=== PATIENT | female | born 1965 | race Caucasian/White ===

== ENCOUNTER 2018-12-09 14:33 | Emergency (ER) | payer SELFPAY ==
--- NOTE | 2018-12-09 15:25 | ER Document Report ---
ED Medical Screen (RME) - General Chief Complaint: Flank Pain Stated Complaint: ABDOMINAL PAIN Time Seen by Provider: 12/09/18 15:17 Mode of Arrival: Ambulatory Information source: Patient Notes: This is a 53-year-old female with a long history of chronic back pain, morbid obesity who presents to the emergency room with worsening back pain and difficulty ambulating. She states hurts all over her back she gets radiation down both of her legs. She denies any fecal or urinary incontinence or retention. She denies any saddle anesthesia. She denies any fever. TRAVEL OUTSIDE OF THE [place] IN LAST 30 DAYS: No - Related Data Allergies/Adverse Reactions: No Known Allergies Allergy (Unverified 12/09/18 15:16) Physical Exam - Vital signs Vitals: Temp Pulse Resp BP Pulse Ox 98.1 F 90 22 H 135/91 H 100 12/09/18 14:41 12/09/18 14:41 12/09/18 14:41 12/09/18 14:41 12/09/18 14:41 Course - Vital Signs Vital signs: Temp Pulse Resp BP Pulse Ox 98.1 F 90 22 H 135/91 H 100 12/09/18 14:41 12/09/18 14:41 12/09/18 14:41 12/09/18 14:41 12/09/18 14:41
[2018-12-09] MEDS ORDERED: HYDROMORPHONE HCL INJ/PF 2 MG/ML AMPULE IV ONE (15:26)
[2018-12-09] MEDS ORDERED: ONDANSETRON HCL INJ/PF 4 MG/2 ML SDV IV ONE (15:26)
[2018-12-09] MEDS ORDERED: KETOROLAC TROMETHAMINE INJ/PF 30 MG/1 ML SDV IV ONE (15:26)
[2018-12-09 16:55] LABS: APPEARANCE,URINE CLOUDY; BILIRUBIN,URINE NEGATIVE (NEGATIVE); GLUCOSE, URINE 50 mg/dL (NEGATIVE); KETONES,URINE NEGATIVE (NEGATIVE); LEUKOCYTE ESTERASE,URINE TRACE (NEGATIVE); NITRITE,URINE NEGATIVE (NEGATIVE); PROTEIN,URINE NEGATIVE (NEGATIVE); URINE SPECIFIC GRAVITY 1.019; UROBILINOGEN,URINE NEGATIVE mg/dL (<2.0)
[2018-12-09 17:01] LABS: COLOR,URINE YELLOW
--- NOTE | 2018-12-09 18:45 | ER Document Report ---
ED General - General Chief Complaint: Flank Pain Stated Complaint: ABDOMINAL PAIN Time Seen by Provider: 12/09/18 15:17 Mode of Arrival: Ambulatory Notes: 53-year-old female patient emergency department chief complaint of left flank pain and back pain. Patient states that she has chronic low back pain and neck pain. Has been getting worse over the last several days. States that she had imaging done almost 10 years ago and told that she has significant degenerative disc disease. Patient denies any so bladder retention but does state that she had an episode of diarrhea and improved herself last week. Unknown if that was voluntary or involuntary. Patient is requesting something for the pain but also states that she is worried something else is going on and wants pictures taken. Denies any fever, chills, sweats. Does have some numbness in both of her legs that comes and goes. Also has some pain in her neck with numbness in her arms which comes and goes. TRAVEL OUTSIDE OF THE [place] IN LAST 30 DAYS: No - HPI Quality of pain: Achy Severity: Moderate Pain Level: 3 - Related Data Allergies/Adverse Reactions: No Known Allergies Allergy (Unverified 12/09/18 15:16) Past Medical History - General Information source: Patient - Social History Smoking Status: Never Smoker Frequency of alcohol use: None Drug Abuse: None Lives with: Spouse/Significant other Family History: Reviewed & Not Pertinent Patient has suicidal ideation: No Patient has homicidal ideation: No - Past Medical History Cardiac Medical History: Reports: Hx Hypertension Renal/ Medical History: Denies: Hx Peritoneal Dialysis Psychiatric Medical History: Reports: Hx Depression Past Surgical History: Reports: Hx Hysterectomy Review of Systems - Review of Systems Notes: Constitutional: denies: Chills, Diaphoresis, Fever, Malaise, Weakness EENT: denies: Eye discharge, Blurred vision, Tearing, Double vision, Nose congestion, Nose discharge, Throat swelling, Mouth pain Cardiovascular: denies: Palpitations, Heart racing, Orthopnea, Dyspnea, Chest pain Respiratory: denies: Cough, Hurts to breathe, Wheezing, Shortness of breath Gastrointestinal: denies: Abdominal pain, Diarrhea, Nausea, Vomiting, Black stools, bright red blood in stool Genitourinary: denies: Burning, Dysuria, Discharge, Frequency, Flank pain, Hematuria Musculoskeletal: denies: Joint pain, Joint swelling, Muscle pain, Muscle stiffness, + neck pain and back pain Hematologic/Lymphatic: denies: Anemia, Easy bleeding, Easy bruising, Blood clots Neurological/Psychological: denies: Confusion, Dementia, Depression, Loss of consciousness. Mild numbness in her legs. Skin: No lesions, no masses, no skin breakdown, no abscesses Physical Exam - Vital signs Vitals: Temp Pulse Resp BP Pulse Ox 98.1 F 90 22 H 135/91 H 100 12/09/18 14:41 12/09/18 14:41 12/09/18 14:41 12/09/18 14:41 12/09/18 14:41 Interpretation: Normal - General General appearance: Appears well, Alert - HEENT Head: Normocephalic, Atraumatic Eyes: Normal Pupils: PERRL - Respiratory Respiratory status: No respiratory distress Chest status: Nontender Breath sounds: Normal Chest palpation: Normal - Cardiovascular Rhythm: Regular Heart sounds: Normal auscultation Murmur: No - Abdominal Inspection: Normal Distension: No distension Bowel sounds: Normal Tenderness: Nontender Organomegaly: No organomegaly - Back Back: Normal, Tender - Moderate tenderness palpation in the left SI joint area negative straight leg. - Extremities General upper extremity: Normal inspection, Nontender, Normal color, Normal ROM, Normal temperature General lower extremity: Normal inspection, Nontender, Normal color, Normal ROM, Normal temperature, Normal weight bearing. No: Kaley's sign - Neurological Neuro grossly intact: Yes Cognition: Normal Orientation: AAOx4 [place] Coma Scale Eye Opening: Spontaneous [place] Coma Scale Verbal: Oriented [place] Coma Scale Motor: Obeys Commands [place] Coma Scale Total: 15 Speech: Normal Motor strength normal: LUE, RUE, LLE, RLE Sensory: Normal - Psychological Associated symptoms: Normal affect, Normal mood - Skin Skin Temperature: Warm Skin Moisture: Dry Skin Color: Normal Course - Re-evaluation Re-evalutation: 12/09/18 20:19 Laboratory 12/09/18 12/09/18 12/09/18 16:25 18:30 18:30 WBC 9.7 RBC 4.79 Hgb 13.6 Hct 40.5 MCV 85 MCH 28.4 MCHC 33.6 RDW 14.3 H Plt Count 408 Seg Neutrophils % 54.1 Lymphocytes % 33.3 Monocytes % 5.7 Eosinophils % 6.0 Basophils % 0.9 Absolute Neutrophils 5.2 Absolute Lymphocytes 3.2 Absolute Monocytes 0.6 Absolute Eosinophils 0.6 Absolute Basophils 0.1 Sodium 136.0 L Potassium 4.6 Chloride 97 L Carbon Dioxide 28 Anion Gap 11 BUN 29 H Creatinine 0.71 Est GFR ( Amer) > 60 Est GFR (Non-Af Amer) > 60 Glucose 169 H Calcium 10.2 Total Bilirubin 0.4 Direct Bilirubin 0.2 Neonat Total Bilirubin Not Reportable Neonat Direct Bilirubin Not Reportable Neonat Indirect Bili Not Reportable AST 33 ALT 42 Alkaline Phosphatase 182 H Total Protein 8.0 Albumin 5.1 H Urine Color YELLOW Urine Appearance CLOUDY Urine pH 6.0 Ur Specific Sheldon 1.019 Urine Protein NEGATIVE Urine Glucose (UA) 50 H Urine Ketones NEGATIVE Urine Blood NEGATIVE Urine Nitrite NEGATIVE Urine Bilirubin NEGATIVE Urine Urobilinogen NEGATIVE Ur Leukocyte Esterase TRACE H Urine WBC (Auto) 2 Urine RBC (Auto) 1 Squamous Epi Cells Auto 2 Urine Mucus (Auto) RARE Urine Ascorbic Acid NEGATIVE Abdomen/Pelvis CT 12/09/18 19:16 IMPRESSION: Negative for urinary tract calculus or hydronephrosis. Sigmoid diverticulosis without CT evidence for diverticulitis. TECHNICAL DOCUMENTATION: Quality ID # 436: Final reports with documentation of one or more dose reduction techniques (e.g., Automated exposure control, adjustment of the mA and/or kV according to patient size, use of iterative reconstruction technique) copyright 2011 [employer]- All Rights Reserved Cervical Spine X-Ray 12/09/18 19:16 IMPRESSION: Moderate degenerative changes. No fracture. 12/09/18 20:19 At this time I find no significant pathology seen on CT scan of the abdomen and pelvis. No kidney stone. No fractures of the lumbar spine. X-rays of the cervical spine did not reveal any significant pathology other than some degenerative changes. Patient will need to see outpatient pain management doctor. We will give her a refill for all/name for pain management and DC her at this time. - Vital Signs Vital signs: Temp Pulse Resp BP Pulse Ox 98.1 F 90 22 H 135/91 H 100 12/09/18 14:41 12/09/18 14:41 12/09/18 14:41 12/09/18 14:41 12/09/18 14:41 - Laboratory Result Diagrams: 12/09/18 18:30 12/09/18 18:30 Laboratory results interpreted by me: 12/09/18 12/09/18 12/09/18 16:25 18:30 18:30 RDW 14.3 H Sodium 136.0 L Chloride 97 L BUN 29 H Glucose 169 H Alkaline Phosphatase 182 H Albumin 5.1 H Urine Glucose (UA) 50 H Ur Leukocyte Esterase TRACE H Discharge - Discharge Clinical Impression: Cervical arthritis Chronic low back pain Qualifiers: Back pain laterality: left Sciatica presence: with sciatica Sciatica laterality: sciatica of left side Qualified Code(s): M54.42 - Lumbago with sciatica, left side; G89.29 - Other chronic pain Condition: Good Disposition: HOME, SELF-CARE Instructions: Chronic Back Pain ([facility]), Low Back Pain ([facility]) Additional Instructions: Please follow-up with pain management for further evaluation as this will more likely need repeat medications. Do not mix alcohol with narcotics. Return immediately if you develop high fevers, worsening numbness to the lower extremities, loss of bowel or bladder function or other concerns. Prescriptions: Famotidine [Pepcid 20 mg Tablet] 20 mg PO BID 20 Days #40 tablet Meloxicam [Mobic] 15 mg PO DAILY 20 Days #20 tablet Forms: Return to Work Referrals: ELBA ZAVALA MD [ACTIVE STAFF] - Follow up as needed [facility] [Provider Group] - Follow up as needed
[2018-12-09 19:05] LABS: ABSOLUTE BASOPHILS # (AUTO) 0.1 10^3/uL (0.0-0.2); ABSOLUTE EOSINOPHILS # (AUTO) 0.6 10^3/uL (0.0-0.6); ABSOLUTE LYMPHOCYTES (AUTO) 3.2 10^3/uL (0.5-4.7); ABSOLUTE MONOCYTES (AUTO) 0.6 10^3/uL (0.1-1.4); ABSOLUTE NEUT (AUTO) 5.2 10^3/uL (1.7-8.2); BASOPHILS % (AUTO) 0.9 % (0-2); HEMATOCRIT 40.5 % (36.0-47.0); HEMOGLOBIN 13.6 g/dL (12.0-15.5); LYMPHOCYTES % (AUTO) 33.3 % (13-45); MEAN CORPUSCULAR HEMOGLOBIN 28.4 pg (27.0-33.4); MEAN CORPUSCULAR HGB CONC 33.6 g/dL (32.0-36.0); MEAN CORPUSCULAR VOLUME 85 fl (80-97); MONOCYTES % (AUTO) 5.7 % (3-13); PLATELET COUNT 408 10^3/uL (150-450); RED BLOOD COUNT 4.79 10^6/uL (3.72-5.28); RED CELL DISTRIBUTION WIDTH 14.3 % (11.5-14.0); SEGMENTED NEUTROPHILS % (AUTO) 54.1 % (42-78); TOTAL CELLS COUNTED % (AUTO) 100 %; WHITE BLOOD COUNT 9.7 10^3/uL (4.0-10.5)
[2018-12-09] MEDS ORDERED: OXYCODONE-ACETAMINOPHEN 5-325 MG TABLET PO ONE (19:17)
[2018-12-09 19:25] LABS: ALANINE AMINOTRANSFERASE 42 U/L (9-52); ALBUMIN 5.1 g/dL (3.5-5.0); ALKALINE PHOSPHATASE 182 U/L (38-126); ANION GAP 11 (5-19); ASPARTATE AMINO TRANSFERASE 33 U/L (14-36); BILIRUBIN,DIRECT 0.2 mg/dL (0.0-0.4); BILIRUBIN,TOTAL 0.4 mg/dL (0.2-1.3); BLOOD UREA NITROGEN 29 mg/dL (7-20); CALCIUM 10.2 mg/dL (8.4-10.2); CARBON DIOXIDE 28 mmol/L (22-30); CHLORIDE 97 mmol/L (98-107); GLUCOSE 169 mg/dL (75-110); POTASSIUM 4.6 mmol/L (3.6-5.0)
--- NOTE | 2018-12-09 20:04 | RADIOLOGY REPORT (SQ) ---
EXAM DESCRIPTION: XR CERVICAL SPINE 4-5 VIEWS COMPLETED DATE/TME: 12/09/2018 19:16 CLINICAL HISTORY: 53 years, Female, neck pain and bilateral arm numbness Findings: Vertebral body heights are intact. Alignment is intact. No subluxation. Moderate degenerative changes at C5-C6 and C6-C7. No significant prevertebral soft tissue swelling. Odontoid process is intact. IMPRESSION: Moderate degenerative changes. No fracture.
--- NOTE | 2018-12-09 20:08 | RADIOLOGY REPORT (SQ) ---
EXAM DESCRIPTION: CT ABDOMEN PELVIS WITHOUT IV CONTRAST COMPLETED DATE/TME: 12/09/2018 19:16 CLINICAL HISTORY: 53 years, Female, left flank pain, severe back pain, COMPARISON: None. TECHNIQUE: [id number] Images stored on PACS. All CT scanners at this facility use dose modulation, iterative reconstruction, and/or weight based dosing when appropriate to reduce radiation dose to as low as reasonably achievable (ALARA). [facility]: Dose Right [facility]: CareDose [facility]: Dose Right [facility]: Teradose 4D [facility]: [employer] LIMITATIONS: None. FINDINGS: The visualized lung bases are unremarkable. Osseous structures are grossly intact. The liver, spleen, adrenal glands, pancreas are unremarkable. Status post cholecystectomy. Lobulated appearance to the kidneys bilaterally likely reflecting renal cortical scar formation. Negative for urinary tract calculus or hydronephrosis. Urinary bladder not distended, limiting its evaluation. Sigmoid diverticulosis. No CT evidence for diverticulitis. Normal appendix. Several nonspecific nonenlarged mesenteric lymph nodes in the right lower quadrant. IMPRESSION: Negative for urinary tract calculus or hydronephrosis. Sigmoid diverticulosis without CT evidence for diverticulitis. TECHNICAL DOCUMENTATION: Quality ID # 436: Final reports with documentation of one or more dose reduction techniques (e.g., Automated exposure control, adjustment of the mA and/or kV according to patient size, use of iterative reconstruction technique) copyright 2010 [employer]- All Rights Reserved
[2018-12-09] MEDS ORDERED: HYDROCODONE/ACETAMINOPHEN 5-325 MG (6 TAB/ER DISP) PO PRN (20:29)
[2018-12-09 22:01] VITALS: BP 141/81
== END 2018-12-09 21:00 | disposition home or self-care (01) ==
LOC: EDBD → ER 14:33
DX: M47.9 Spondylosis, unspecified (principal); M54.2 Cervicalgia; G89.29 Other chronic pain; M54.42 Lumbago with sciatica, left side; R20.0 Anesthesia of skin; I10 Essential (primary) hypertension; K57.30 Diverticulosis of large intestine without perforation or abscess without bleeding
CPT/HCPCS: 99284; 96374; 96375; 36415; 85025; 80053; 81001; 72050; 74176; J1885; J1170; J2405